=== PATIENT | male | born 1965 | race Caucasian/White ===

== ENCOUNTER 2017-02-10 13:36 | Emergency (ER) | payer OTHER ==
--- NOTE | ~2017-02-10 | CR142 ---
[facility] A Service of [facility] & [facility] RADIOLOGY TEXT RESULTS PATIENT: BAILEE LEACH LOCATION: [facility] : 69 UNIT #: [id number] AGE: [address]: Amanda Carrillo APRN SEX: M ORDER DR: [id number] [facility] [address] [place], [place] [address] [id number] E MR#: [id number] Acc #: [id number] NAME: BAILEE LEACH : 1965 SEX: M STUDY DATE/TIME: 02/10/2017 13:37 UNIT: [facility] ROOM: STUDY DESCRIPTION: CR Hand Min 3 Views Rt Attending Physician: Amanda Carrillo A.P.R.N. Ordering Physician: [facility] Primary Care Physician: [facility], [facility]. MEDICAL IMAGING REPORT This report is preliminary unless electronic signature is present EXAM Right hand 02/10/2017 HISTORY Pain and swelling for the past 8 months. TECHNIQUE 3 views of the hand were obtained. FINDINGS AP, lateral, and oblique projections of the hand show good mineralization with normal carpal, metacarpal, and phalangeal anatomy without indication of fracture, dislocation, or soft tissue radiopaque foreign body. IMPRESSION Normal hand. Dictated by... Sim Cervantes M.D. THIS IS AN ELECTRONICALLY VERIFIED REPORT Sim Cervantes M.D. at 02/10/2017 6:02 PM [email or web address]/[email or web address] TD: 02/10/2017 15:21 JOB #: [id number] MEDICAL IMAGING REPORT Page 1 of 1 COPY
--- NOTE | ~2017-02-10 | CR282 ---
[facility] A Service of [facility] RADIOLOGY TEXT RESULTS PATIENT: BAILEE LEACH LOCATION: [facility] : [birth year] UNIT #: [id number] AGE: [address]: Amanda Carrillo APRN SEX: M ORDER DR: [id number] [place] [id number] [facility] [place], [place] [address] [id number] E MR#: [id number] Acc #: [id number] NAME: BAILEE LEACH : 1965 SEX: M STUDY DATE/TIME: 02/10/2017 13:36 UNIT: [facility] ROOM: STUDY DESCRIPTION: CR Wrist Min 3 View Rt Attending Physician: Amanda Carrillo A.P.R.N. Ordering Physician: Alirio Stephen M.D. [facility]AG[facility] REPORT This report is preliminary unless electronic signature is present EXAM Right wrist. HISTORY Wrist pain and swelling for the past 8 months. TECHNIQUE 3 views of the wrist were obtained. FINDINGS Wrist evaluation in multiple projections shows normal mineralization of the bony structures about the wrist and satisfactory articular relationship of the radius and ulna to the proximal carpal row and of the distal carpal segments to the metacarpal bases. There is no indication of fracture or dislocation, and no soft tissue radiopaque foreign body is present. No congenital defects are apparent. IMPRESSION Normal wrist. Dictated by... Sim Cervantes M.D. THIS IS AN ELECTRONICALLY VERIFIED REPORT Sim Cervantes M.D. at 02/10/2017 6:02 PM [email or web address]/[email or web address] TD: 02/10/2017 15:20 JOB #: [id number] MEDICAL IMAGING REPORT [facility] A Service [facility] RADIOLOGY TEXT RESULTS PATIENT: BAILEE LEACH LOCATION: [facility] : [birth year] UNIT #: [id number] AGE: [address]: Amanda Carrillo APRN SEX: M ORDER DR: Page 1 of 1 COPY
[~2017-02-10 13:36] MED LIST: BACTRIM DS TABL1 TAB PO; CIPRO PO; DAKIN'S3840 ML TOP; FLOMAX0.4 MG PO; NO MEDICATIONS; PERCOCET PO; TYLOX 5/500 CAP1 CAP PO; VICODIN 5/500 T1 TAB PO; ZOFRAN ODT4 MG PO
== END 2017-02-10 14:51 | disposition home or self-care (01) ==
LOC: CFTX 13:36
DX: G89.29 Other chronic pain (principal); M25.531 Pain in right wrist; M79.641 Pain in right hand; F17.210 Nicotine dependence, cigarettes, uncomplicated
CPT/HCPCS: 29125; 73110; 73130; 99283